=== PATIENT | male | born 1960 | race Caucasian/White ===

== ENCOUNTER 2020-05-26 13:26 | Emergency (ER) | payer BC ==
[2020-05-26 14:48] LABS: Bilirubin Negative (Negative); Blood, Urine Negative (Negative); Clarity Clear (Clear); Glucose, Urine (Dipstick) Normal (Negative); Ketone, Urine Negative (Negative); Leukocyte Negative Leu/uL (Negative); Nitrite Negative (Negative); Protein, Urine (Dipstick) Negative (Neg-Trace); Specific Gravity, Urine 1.011 (1.002-1.036); Urobilinogen Normal mg/dL (Less than 2); pH, Urine 6.5 (5.0-9.0)
[2020-05-26 14:57] LABS: #Lymphocytes 0.9 thou/uL (1.20-3.40); #Monocytes 0.5 thou/uL (0.11-0.59); #Neutrophils 9.2 thou/uL (1.40-6.50); %Basophils 0.2 % (0.0-1.0); %Eosinophils 0.1 % (0.0-10.0); %Monocytes 4.8 % (0.0-10.0); %Neutrophils 86.8 % (42.0-75.0); Hemoglobin 15.5 g/dL (14.0-18.0); Mean Corpuscular HGB CONC 36.3 g/dL (32.0-36.0); Mean Corpuscular Hemoglobin 34.3 pg (27.0-31.0); Mean Corpuscular Volume 94.7 fL (78.0-98.0); Mean Platelet Volume 7.1 fL (7.4-10.4); Platelet Count 241 thou/uL (130-400); RBC Distribution Width 11.8 % (11.5-14.5); White Blood Cell (WBC) Count 10.6 thou/uL (4.8-10.8)
[2020-05-26 15:06] LABS: Amphetamine Not Detected (NotDetected); Barbiturates Screen Not Detected (NotDetected); Benzodiazepine Screen Not Detected (NotDetected); Cocaine Metabolite Screen Not Detected (NotDetected); Medtox Control Line Valid? VALID (VALID); Medtox Reader # READER 4; Methadone Not Detected (NotDetected); Methamphetamine Not Detected (NotDetected); Opiate Screen Not Detected (NotDetected); Oxycodone Screen Not Detected (NotDetected); Phencyclidine (PCP) Not Detected (NotDetected); THC/Cannabinoid Screen Not Detected (NotDetected); Tricyclic Screen Not Detected (NotDetected)
[2020-05-26 15:26] LABS: ALT (SGPT) 43 U/L (8-55); AST (SGOT) 25 U/L (5-34); Alkaline Phosphatase 84 U/L (40-110); Anion Gap 17 mmol/L (10-20); BUN (Urea Nitrogen) 6 mg/dL (8.4-25.7); Bilirubin, Total 0.7 mg/dL (0.2-1.2); Calc. Creatinine Clearance 0 mL/min (70-130); Calcium 9.1 mg/dL (7.8-10.44); Carbon Dioxide 17 mmol/L (22-29); Chloride 105 mmol/L (98-107); Estimated GFR-MDRD 78; Globulin 3.2 g/dL (2.4-3.5); Glucose 112 mg/dL (70-105); Protein, Total 7.2 g/dL (6.0-8.3); Sodium 135 mmol/L (136-145)
[2020-05-26 15:30] LABS: Acetaminophen Less than 6.0 mcg/mL (10.0-30.0); Alcohol Less than 10 mg/dL (Less than 10); Salicylate Less than 8.0 mg/dL (15.0-30.0)
--- NOTE | 2020-06-18 13:08 | EKG ---
Test Reason : Blood Pressure : / mmHG Vent. Rate : 098 BPM Atrial Rate : 098 BPM P-R Int : 172 ms QRS Dur : 074 ms QT Int : 374 ms P-R-T Axes : 043 026 029 degrees QTc Int : 477 ms Poor data quality, interpretation may be adversely affected Normal sinus rhythm Normal ECG Confirmed by TAYLOR LIMON DO ([id number]), content editor SHYANN ADRIAN ([id number]) on 06/18/2020 1:08:03 PM Referred By: Confirmed By:TAYLOR LIMON DO
== END 2020-05-27 01:46 ==
LOC: ERS 13:26
DX: T45.0X2A Poisoning by antiallergic and antiemetic drugs, intentional self-harm, initial encounter (principal); Z87.891 Personal history of nicotine dependence
CPT/HCPCS: 36415; 80053; 80306; 80307; 81003; 84443; 85025; 93005

== ENCOUNTER 2025-07-13 05:41 | Inpatient (IN) | payer OTHER ==
[2025-07-06 10:26] VITALS: BMI 40.0
[2025-07-13] MEDS ORDERED: fentaNYL PF 100 MCG/2 ML SYRINGE ONE ×3 (07:08→10:50)
[2025-07-13] MEDS ORDERED: Lidocaine 1% PF 5 ML VIAL ONE (07:08)
[2025-07-13] MEDS ORDERED: Rocuronium Bromide 10 MG/ML (10ML VIAL) ONE (07:49)
[2025-07-13] MEDS ORDERED: PROPOFOL 200 MG/20 ML VIAL ONE (07:49)
[2025-07-13] MEDS ORDERED: Hydrocortisone Sod Succ/PF 100 mg/2 ml Vial ONE (08:01)
[2025-07-13] MEDS ORDERED: Ondansetron PF 4 MG/2 ML Vial ONE (09:30)
[2025-07-13] MEDS ORDERED: SUGAMMADEX SODIUM 200 MG/2 ML VIAL ONE (09:31)
[2025-07-13] MEDS ORDERED: HYDROmorphone 2 MG/ML VIAL ONE (09:31)
[2025-07-13] MEDS ORDERED: hydrALAZINE 20 MG/ML VIAL SLOW IVP PRN (10:41)
[2025-07-13] MEDS: Acetaminophen 500 MG TAB PO SCH (14:03)
[2025-07-13] MEDS: Ondansetron PF 4 MG/2 ML Vial IVP PRN (14:45)
[2025-07-13] MEDS ORDERED: diphenhydrAMINE 50 MG/ML VIAL IM/IV PRN (17:00)
[2025-07-13] MEDS ORDERED: fentaNYL Citrate/PF 55 ML IV SCH (17:00)
[2025-07-13] MEDS ORDERED: diphenhydrAMINE 25 MG CAP PO PRN (17:00)
[2025-07-14 05:29] LABS: #Basophils 0.03 10x3/uL (0.0-0.2); #Eosinophils 0.26 10x3/uL (0.0-0.7); #Monocytes 1.85 10x3/uL (0.11-0.59); #Neutrophils 10.81 10x3/uL (1.40-6.50); %Basophils 0.2 % (0.0-1.0); %Eosinophils 1.9 % (0.0-10.0); %Lymphocytes 5.9 % (21.0-51.0); %Monocytes 13.3 % (0.0-10.0); %Neutrophils 77.7 % (42.0-75.0); Hematocrit 42.1 % (42.0-52.0); Hemoglobin 13.4 g/dL (14.0-18.0); Mean Corpuscular Hemoglobin 32.8 pg (27.0-31.0); Mean Corpuscular Volume 103.2 fL (78.0-98.0); Platelet Count 186 10x3/uL (130-400); Red Blood Cell (RBC) Count 4.08 mill/uL (4.70-6.10); White Blood Cell (WBC) Count 13.91 10x3/uL (4.8-10.8)
[2025-07-14 05:44] LABS: Anion Gap 16 mmol/L (10-20); BUN (Urea Nitrogen) 11 mg/dL (8.4-25.7); Calc. Creatinine Clearance 155 mL/min (70-130); Calcium 8.7 mg/dL (7.8-10.44); Carbon Dioxide 19 mmol/L (23-31); Chloride 104 mmol/L (98-107); Glucose 114 mg/dL (80-115); Potassium 4.1 mmol/L (3.5-5.1); Sodium 135 mmol/L (136-145)
[2025-07-14] MEDS: Ondansetron PF 4 MG/2 ML Vial IVP PRN (06:20)
[2025-07-14] MEDS: Enoxaparin 40 MG (0.4 mL) SYRINGE SC SCH ×2 (09:27→20:56)
[2025-07-14] MEDS: Ketorolac Tromethamine 30 MG (1 mL) VIAL IVP PRN (09:34)
[2025-07-14] MEDS: Acetaminophen 500 MG TAB PO SCH (12:53)
[2025-07-14] MEDS: Ketorolac Tromethamine 30 MG (1 mL) VIAL IVP SCH (12:53)
[2025-07-14] MEDS: fentaNYL Citrate/PF 55 ML IV SCH (18:26)
[2025-07-14] MEDS: Benzocaine/Menthol 1 LOZ LOZ PO PRN (18:28)
[2025-07-15] MEDS: oxyCODONE 5 MG TAB PO PRN (13:01)
[2025-07-15] MEDS: Mupirocin 1 GM TUBE NASAL DECOLONIZATION NASAL SCH (21:49)
[2025-07-16] MEDS: D5 1/2 NS w/20 mEq KCL 1,000 ML IV SCH (13:20)
[2025-07-17] MEDS: Apixaban 5 MG TAB PO SCH (09:33)
[2025-07-17] MEDS: oxyCODONE 5 MG TAB PO PRN (09:50)
[2025-07-17] MEDS: Ketorolac Tromethamine 30 MG (1 mL) VIAL IVP PRN (11:00)
[2025-07-17] MEDS: D5 1/2 NS w/20 mEq KCL 1,000 ML IV SCH (16:56)
[2025-07-18] MEDS ORDERED: D5 1/2 NS w/20 mEq KCL 1,000 ML IV SCH (08:30)
[2025-07-18 10:41] LABS: Hematocrit 29.9 % (42.0-52.0); Hemoglobin 9.7 g/dL (14.0-18.0); Mean Corpuscular Hemoglobin 32.4 pg (27.0-31.0); Mean Corpuscular Volume 100.0 fL (78.0-98.0); Platelet Count 193 10x3/uL (130-400); Red Blood Cell (RBC) Count 2.99 mill/uL (4.70-6.10); White Blood Cell (WBC) Count 10.25 10x3/uL (4.8-10.8)
[2025-07-18 10:59] LABS: ALT (SGPT) 20 U/L (Less than 45); AST (SGOT) 32 U/L (11-34); Albumin 2.2 g/dL (3.1-4.5); Alkaline Phosphatase 315 U/L (40-110); Anion Gap 12 mmol/L (10-20); BUN (Urea Nitrogen) 14 mg/dL (8.4-25.7); Bilirubin, Total 0.9 mg/dL (0.3-1.2); Calc. Creatinine Clearance 188 mL/min (70-130); Calcium 8.3 mg/dL (7.8-10.44); Carbon Dioxide 23 mmol/L (23-31); Chloride 105 mmol/L (98-107); Globulin 4.0 g/dL (2.4-3.5); Glucose 111 mg/dL (80-115); Potassium 4.0 mmol/L (3.5-5.1); Sodium 136 mmol/L (136-145)
[2025-07-18 11:13] LABS: Anisocytosis SLIGHT = 6-15 cells HPF (0-5); Macrocytosis SLIGHT = 6-15 cells HPF (0-5); Platelet Adequacy Comment Platelets Normal; Polychromasia SLIGHT = 2-3 cells HPF (0-2); Schistocytes SLIGHT = 2-5 cells HPF (0-1); Smudge Cells 2.0 %
[2025-07-18] MEDS: D5 1/2 NS w/20 mEq KCL 1,000 ML IV SCH (12:41)
[2025-07-19] MEDS ORDERED: Iopamidol-370 76% 500 ML MDV (1 ML CHARGE) ONE (10:11)
[2025-07-20] MEDS ORDERED: Sodium Bicarbonate 2.5 MEQ/5 ML SDV ONE (09:56)
[2025-07-20] MEDS ORDERED: Lidocaine 1% w/Epinephrine 1:100K 20 ML VIAL ONE (09:56)
[2025-07-20 11:16] LABS: Cardiac Risk 4.0 (Less than 4.5); Cholesterol 127 mg/dl (< 200 Desired); HDL Cholesterol 32 mg/dL (>60 Neg Risk); LDL Cholesterol, Calculated 78 mg/dL; Magnesium 2.0 mg/dL (1.6-2.6); Triglycerides 84 mg/dL (Less than 150)
[2025-07-20 11:21] LABS: INR-International Normal Ratio 1.6; Prothrombin Time 19.0 sec (12.0-14.7)
[2025-07-20] MEDS: Morphine 50 MG in Sodium Chloride 0.9% 45 ML IV SCH (15:58)
[2025-07-20] MEDS: Fat Emulsion 250 ML, Multivitamins, Adult 10 ML, TRACE ELEMENT CONCENTRATE 1 ML in D15W... IV SCH (16:33)
[2025-07-21] MEDS ORDERED: TPN ELECTROLYTES IVPB PRN (06:22)
[2025-07-21] MEDS ORDERED: Sodium Bicarbonate 2.5 MEQ/5 ML SDV ONE (08:01)
[2025-07-21] MEDS ORDERED: Lidocaine 1% w/Epinephrine 1:100K 20 ML VIAL ONE (08:01)
[2025-07-21 12:13] LABS: Anion Gap 14 mmol/L (10-20); BUN (Urea Nitrogen) 9 mg/dL (8.4-25.7); Calc. Creatinine Clearance 230 mL/min (70-130); Calcium 8.6 mg/dL (7.8-10.44); Carbon Dioxide 21 mmol/L (23-31); Chloride 104 mmol/L (98-107); Glucose 100 mg/dL (80-115); Magnesium 1.8 mg/dL (1.6-2.6); Potassium 4.2 mmol/L (3.5-5.1); Sodium 135 mmol/L (136-145); Triglycerides 86 mg/dL (Less than 150)
[2025-07-21 12:28] LABS: Hematocrit 33.1 % (42.0-52.0); Hemoglobin 10.7 g/dL (14.0-18.0); Mean Corpuscular Hemoglobin 32.3 pg (27.0-31.0); Mean Corpuscular Volume 100.0 fL (78.0-98.0); Platelet Count 194 10x3/uL (130-400); Red Blood Cell (RBC) Count 3.31 mill/uL (4.70-6.10); White Blood Cell (WBC) Count 19.75 10x3/uL (4.8-10.8)
[2025-07-21] MEDS: Milk Of Magnesia 30 ML UDCUP PO SCH (13:07)
[2025-07-21 13:17] LABS: Anisocytosis SLIGHT = 6-15 cells HPF (0-5); Burr Cells SLIGHT = 2-5 cells HPF (0-1); Nucleated RBC (Manual Ct) 1 % (0); Platelet Adequacy Comment Platelets Normal; Poikilocytosis SLIGHT = 6-15 cells HPF (0-5); Polychromasia SLIGHT = 2-3 cells HPF (0-2); Smudge Cells 5.9 %; Spherocytes SLIGHT = 1-5 cells HPF (None Seen)
[2025-07-21] MEDS: Ondansetron PF 4 MG/2 ML Vial IVP PRN (22:38)
[2025-07-22 06:33] LABS: Magnesium 2.1 mg/dL (1.6-2.6); Triglycerides 102 mg/dL (Less than 150)
[2025-07-22 09:22] LABS: Anion Gap 13 mmol/L (10-20); BUN (Urea Nitrogen) 9 mg/dL (8.4-25.7); Calc. Creatinine Clearance 252 mL/min (70-130); Calcium 7.0 mg/dL (7.8-10.44); Carbon Dioxide 23 mmol/L (23-31); Chloride 112 mmol/L (98-107); Glucose 140 mg/dL (80-115); Potassium 4.1 mmol/L (3.5-5.1); Sodium 144 mmol/L (136-145)
[2025-07-23 05:23] LABS: Hematocrit 30.1 % (42.0-52.0); Hemoglobin 10.0 g/dL (14.0-18.0); Mean Corpuscular Hemoglobin 32.9 pg (27.0-31.0); Mean Corpuscular Volume 99.0 fL (78.0-98.0); Platelet Count 128 10x3/uL (130-400); Red Blood Cell (RBC) Count 3.04 mill/uL (4.70-6.10); White Blood Cell (WBC) Count 18.86 10x3/uL (4.8-10.8)
[2025-07-23 05:48] LABS: Anion Gap 6 mmol/L (10-20); BUN (Urea Nitrogen) 12 mg/dL (8.4-25.7); Calc. Creatinine Clearance 278 mL/min (70-130); Calcium 8.1 mg/dL (7.8-10.44); Carbon Dioxide 23 mmol/L (23-31); Chloride 103 mmol/L (98-107); Glucose 124 mg/dL (80-115); Potassium 3.9 mmol/L (3.5-5.1); Sodium 128 mmol/L (136-145)
[2025-07-23 06:58] LABS: Anisocytosis SLIGHT = 6-15 cells HPF (0-5); Macrocytosis SLIGHT = 6-15 cells HPF (0-5); Platelet Adequacy Comment Platelets Decreased; Polychromasia SLIGHT = 2-3 cells HPF (0-2); Smudge Cells 2.9 %
[2025-07-23 10:37] VITALS: BMI 40.0
[2025-07-24 10:19] LABS: #Basophils 0.07 10x3/uL (0.0-0.2); #Eosinophils 0.61 10x3/uL (0.0-0.7); #Monocytes 1.26 10x3/uL (0.11-0.59); #Neutrophils 18.37 10x3/uL (1.40-6.50); %Basophils 0.3 % (0.0-1.0); %Eosinophils 2.8 % (0.0-10.0); %Lymphocytes 3.4 % (21.0-51.0); %Monocytes 5.7 % (0.0-10.0); %Neutrophils 83.1 % (42.0-75.0); Hematocrit 29.0 % (42.0-52.0); Hemoglobin 9.3 g/dL (14.0-18.0); Mean Corpuscular Hemoglobin 31.8 pg (27.0-31.0); Mean Corpuscular Volume 99.3 fL (78.0-98.0); Platelet Count 146 10x3/uL (130-400); Red Blood Cell (RBC) Count 2.92 mill/uL (4.70-6.10); White Blood Cell (WBC) Count 22.10 10x3/uL (4.8-10.8)
[2025-07-24 10:37] LABS: ALT (SGPT) 65 U/L (Less than 45); AST (SGOT) 96 U/L (11-34); Albumin 1.7 g/dL (3.1-4.5); Alkaline Phosphatase 1040 U/L (40-110); Anion Gap 8 mmol/L (10-20); BUN (Urea Nitrogen) 10 mg/dL (8.4-25.7); Bilirubin, Total 6.9 mg/dL (0.3-1.2); Calc. Creatinine Clearance 284 mL/min (70-130); Calcium 8.2 mg/dL (7.8-10.44); Carbon Dioxide 23 mmol/L (23-31); Chloride 105 mmol/L (98-107); Globulin 4.4 g/dL (2.4-3.5); Glucose 119 mg/dL (80-115); Potassium 4.1 mmol/L (3.5-5.1); Sodium 132 mmol/L (136-145)
[2025-07-24] MEDS: D5 1/2 NS w/20 mEq KCL 1,000 ML IV SCH (14:16)
[2025-07-24] MEDS ORDERED: Iopamidol 370 76% 100 ML VIAL ONE (14:44)
[2025-07-24] MEDS: Enoxaparin 30 MG (0.3 mL) SYRINGE SC SCH (20:23)
[2025-07-24] MEDS: Enoxaparin 100 MG (1 mL) SYRINGE SC SCH (20:23)
[2025-07-24] MEDS ORDERED: Enoxaparin 40 MG (0.4 mL) SYRINGE SC SCH (21:00)
[2025-07-25] MEDS: diphenhydrAMINE 25 MG CAP PO PRN (00:42)
[2025-07-25 07:52] LABS: #Basophils 0.13 10x3/uL (0.0-0.2); #Eosinophils 0.73 10x3/uL (0.0-0.7); #Monocytes 1.47 10x3/uL (0.11-0.59); #Neutrophils 19.49 10x3/uL (1.40-6.50); %Basophils 0.6 % (0.0-1.0); %Eosinophils 3.1 % (0.0-10.0); %Lymphocytes 3.2 % (21.0-51.0); %Monocytes 6.3 % (0.0-10.0); %Neutrophils 82.9 % (42.0-75.0); Hematocrit 31.0 % (42.0-52.0); Hemoglobin 10.3 g/dL (14.0-18.0); Mean Corpuscular Hemoglobin 32.2 pg (27.0-31.0); Mean Corpuscular Volume 96.9 fL (78.0-98.0); Platelet Count 152 10x3/uL (130-400); Red Blood Cell (RBC) Count 3.20 mill/uL (4.70-6.10); White Blood Cell (WBC) Count 23.47 10x3/uL (4.8-10.8)
[2025-07-25] MEDS: ALPRAZolam 0.5 MG TAB PO SCH (09:47)
[2025-07-25 10:09] LABS: ALT (SGPT) 88 U/L (Less than 45); AST (SGOT) 123 U/L (11-34); Albumin 1.9 g/dL (3.1-4.5); Alkaline Phosphatase 1246 U/L (40-110); Anion Gap 13 mmol/L (10-20); BUN (Urea Nitrogen) 8 mg/dL (8.4-25.7); Bilirubin, Total 10.3 mg/dL (0.3-1.2); Calc. Creatinine Clearance 278 mL/min (70-130); Calcium 8.4 mg/dL (7.8-10.44); Carbon Dioxide 18 mmol/L (23-31); Chloride 104 mmol/L (98-107); Globulin 4.7 g/dL (2.4-3.5); Glucose 87 mg/dL (80-115); Lipase 17 U/L (8-78); Potassium 4.7 mmol/L (3.5-5.1); Sodium 130 mmol/L (136-145)
[2025-07-25] MEDS: D5 1/2 NS w/20 mEq KCL 1,000 ML IV SCH (14:46)
[2025-07-25] MEDS: Bisacodyl 10 MG SUPP PR SCH (20:37)
[2025-07-26 06:35] LABS: Anion Gap 11 mmol/L (10-20); Calcium 8.1 mg/dL (7.8-10.44); Carbon Dioxide 20 mmol/L (23-31); Chloride 102 mmol/L (98-107); Potassium 4.3 mmol/L (3.5-5.1); Sodium 129 mmol/L (136-145)
[2025-07-26 07:05] LABS: ALT (SGPT) 87 U/L (Less than 45); AST (SGOT) 102 U/L (11-34); Albumin 1.7 g/dL (3.1-4.5); Alkaline Phosphatase 1164 U/L (40-110); BUN (Urea Nitrogen) 9 mg/dL (8.4-25.7); Bilirubin, Total 12.1 mg/dL (0.3-1.2); Calc. Creatinine Clearance 267 mL/min (70-130); Globulin 4.7 g/dL (2.4-3.5); Glucose 98 mg/dL (80-115)
[2025-07-26] MEDS: Naloxegol 12.5 MG TAB PO SCH (08:45)
[2025-07-26] MEDS: ALPRAZolam 0.5 MG TAB PO SCH (14:41)
[2025-07-26] MEDS: diphenhydrAMINE 50 MG/ML VIAL IM/IV PRN (20:59)
[2025-07-27 05:26] LABS: Hematocrit 26.4 % (42.0-52.0); Hemoglobin 8.5 g/dL (14.0-18.0); Mean Corpuscular Hemoglobin 32.0 pg (27.0-31.0); Mean Corpuscular Volume 99.2 fL (78.0-98.0); Platelet Count 146 10x3/uL (130-400); Red Blood Cell (RBC) Count 2.66 mill/uL (4.70-6.10); White Blood Cell (WBC) Count 27.54 10x3/uL (4.8-10.8)
[2025-07-27 05:29] LABS: INR-International Normal Ratio 1.5; Prothrombin Time 17.8 sec (12.0-14.7)
[2025-07-27 05:30] LABS: Anion Gap 11 mmol/L (10-20); BUN (Urea Nitrogen) 10 mg/dL (8.4-25.7); Calc. Creatinine Clearance 284 mL/min (70-130); Calcium 7.9 mg/dL (7.8-10.44); Carbon Dioxide 22 mmol/L (23-31); Chloride 103 mmol/L (98-107); Glucose 105 mg/dL (80-115); Potassium 4.0 mmol/L (3.5-5.1); Sodium 132 mmol/L (136-145)
[2025-07-27 05:31] LABS: CRP, High Sensitivity at Bryan 9.81 mg/dL (< or = 0.5)
[2025-07-27 07:02] LABS: Anisocytosis MODERATE=16-30 cells HPF (0-5); Macrocytosis MODERATE=16-30 cells HPF (0-5); Platelet Adequacy Comment Platelets Normal; Polychromasia SLIGHT = 2-3 cells HPF (0-2); Smudge Cells 1.0 %
[2025-07-28 06:09] LABS: ALT (SGPT) 84 U/L (Less than 45); AST (SGOT) 96 U/L (11-34); Albumin 1.6 g/dL (3.1-4.5); Alkaline Phosphatase 1000 U/L (40-110); Anion Gap 9 mmol/L (10-20); BUN (Urea Nitrogen) 9 mg/dL (8.4-25.7); Bilirubin, Total 13.2 mg/dL (0.3-1.2); Calc. Creatinine Clearance 273 mL/min (70-130); Calcium 7.9 mg/dL (7.8-10.44); Carbon Dioxide 23 mmol/L (23-31); Chloride 104 mmol/L (98-107); Globulin 4.4 g/dL (2.4-3.5); Glucose 103 mg/dL (80-115); Potassium 3.9 mmol/L (3.5-5.1); Sodium 132 mmol/L (136-145)
[2025-07-28 06:24] LABS: #Basophils 0.10 10x3/uL (0.0-0.2); #Eosinophils 0.97 10x3/uL (0.0-0.7); #Monocytes 1.46 10x3/uL (0.11-0.59); #Neutrophils 19.60 10x3/uL (1.40-6.50); %Basophils 0.4 % (0.0-1.0); %Eosinophils 4.1 % (0.0-10.0); %Lymphocytes 3.0 % (21.0-51.0); %Monocytes 6.1 % (0.0-10.0); %Neutrophils 81.9 % (42.0-75.0); Hematocrit 27.5 % (42.0-52.0); Hemoglobin 9.0 g/dL (14.0-18.0); Mean Corpuscular Hemoglobin 32.4 pg (27.0-31.0); Mean Corpuscular Volume 98.9 fL (78.0-98.0); Platelet Count 156 10x3/uL (130-400); Red Blood Cell (RBC) Count 2.78 mill/uL (4.70-6.10); White Blood Cell (WBC) Count 23.93 10x3/uL (4.8-10.8)
[2025-07-28] MEDS ORDERED: diphenhydrAMINE 50 MG/ML VIAL IM PRN (14:05)
[2025-07-28] MEDS ORDERED: diphenhydrAMINE 25 MG CAP PO PRN (14:05)
[2025-07-28] MEDS ORDERED: diphenhydrAMINE 50 MG/ML VIAL IVP PRN (14:05)
[2025-07-28] MEDS ORDERED: Communication Order-Pharmacy FS SCH (14:15)
[2025-07-28] MEDS: HYDROmorphone HCl/0.9% NaCl/PF 30 ML IV SCH (14:24)
[2025-07-28] MEDS: Ondansetron PF 4 MG/2 ML Vial IVP PRN (22:25)
[2025-07-29 01:24] VITALS: BP 121/71; TEMP 98.2
== END 2025-07-29 00:30 | disposition short-term general hospital (02) | DRG 329 ==
LOC: SDC 05:41 → SURG A 13:34
PROVIDERS: ADMIT Surgery; ATTEND Surgery
PROC: 0DBB0ZZ Excision of Ileum, Open Approach (ICD-10-PCS; principal; 2025-07-13)
PROC: 0WUF0JZ Supplement Abdominal Wall with Synthetic Substitute, Open Approach (ICD-10-PCS; principal; 2025-07-13)
PROC: 3E033XZ Introduction of Vasopressor into Peripheral Vein, Percutaneous Approach (ICD-10-PCS; 2025-07-14)
PROC: 02HV33Z Insertion of Infusion Device into Superior Vena Cava, Percutaneous Approach (ICD-10-PCS; 2025-07-21)
PROC: B5181ZA Fluoroscopy of Superior Vena Cava using Low Osmolar Contrast, Guidance (ICD-10-PCS; 2025-07-21)
PROC: B548ZZA Ultrasonography of Superior Vena Cava, Guidance (ICD-10-PCS; 2025-07-21)
PROC: 3E03329 Introduction of Other Anti-infective into Peripheral Vein, Percutaneous Approach (ICD-10-PCS; 2025-07-21)
DX: C18.2 Malignant neoplasm of ascending colon (principal); I81 Portal vein thrombosis; C78.00 Secondary malignant neoplasm of unspecified lung; K56.7 Ileus, unspecified; K91.89 Other postprocedural complications and disorders of digestive system; C79.89 Secondary malignant neoplasm of other specified sites; C78.7 Secondary malignant neoplasm of liver and intrahepatic bile duct; E87.1 Hypo-osmolality and hyponatremia; Z66 Do not resuscitate; Z98.890 Other specified postprocedural states; Z87.891 Personal history of nicotine dependence; K81.9 Cholecystitis, unspecified; K76.0 Fatty (change of) liver, not elsewhere classified; D64.9 Anemia, unspecified; K43.5 Parastomal hernia without obstruction or gangrene
CPT/HCPCS: 36415; 36416; 36573; 74018; 74177; 76705; 78226; 80048; 80053; 80061; 82378; 83690; 83735; 84100; 84134; 84478; 85025; 85610; 86141; 88304; A4314; A4649; A9537; C1751; C1781; J0694; J1171; J1200; J1650; J1720; J1885; J2270; J2405; J2543; J2550; J2704; J3010; J3480; J7030; Q9967